=== PATIENT | male | born 1970 | race Caucasian/White ===

== ENCOUNTER 2016-09-10 18:24 | Emergency (ER) | payer OTHER ==
[2016-09-10 19:14] VITALS: BP 129/69
--- NOTE | 2016-09-10 19:40 | UC ---
Throat Pain/Nasal Homero HPI - HPI Summary HPI Summary: pain left maxillary sinus for past week, progressive. Yellow/green drainage. Left earache and popping. Teeth on upper left side seem to hurt. Constant post- nasal drip. Mild cough. No fever. Left cheek red and swollen when he woke up this AM. Smoker. - History of Current Complaint Chief Complaint: UCRespiratory Stated Complaint: sinuses, swollen L side of face Time Seen by Provider: 09/10/16 19:21 Hx Obtained From: Patient, Family/Splunk Architect - Onset/Duration: Gradual Onset, Lasting Weeks - 1 Severity: Moderate Cough: Productive - yellow Associated Signs & Symptoms: Positive: Hoarseness, Sinus Discomfort, Nasal Discharge. Negative: Dysphagia, FB Sensation, Drooling, Wheezing - Epiglottits Risk Factors Epiglottis Risk Factors: Negative - Allergies/Home Medications Allergies/Adverse Reactions: Allergies Allergy/AdvReac Type Severity Reaction Status Date / Time No Known Allergies Allergy Verified 09/10/16 19:02 PMH/Surg Hx/FS Hx/Imm Hx Previously Healthy: Yes Endocrine History Of: Denies: Diabetes Cardiovascular History Of: Denies: Hypertension, Pacemaker/ICD GI/ History Of: Denies: Renal Disease - Surgical History Surgical History: Yes Surgery Procedure, Year, and Place: left knee - ARTHROSCOPIC - CARTILAGE REPAIR - age 17. LEFT ankle fracture October 2015. LEFT ankle ligament repair Feb 2016 - Family History Known Family History: Positive: Hypertension - Social History Occupation: Employed Full-time Lives: With Family Alcohol Use: Occasionally Alcohol Amount: SOCIALLY Substance Use Type: None Smoking Status (MU): Light Every Day Tobacco Smoker Amount Used/How Often: 1 PACK EVERY 3 DAYS - Immunization History Most Recent Influenza Vaccination: Fall 2015 Review of Systems Constitutional: Negative Skin: Negative Eyes: Negative ENT: Ear Ache, Nasal Discharge Respiratory: Cough - mild, productive Cardiovascular: Negative Gastrointestinal: Negative Genitourinary: Negative Motor: Negative Neurovascular: Negative Musculoskeletal: Negative Neurological: Headache Psychological: Negative All Other Systems Reviewed And Are Negative: Yes Physical Exam Triage Information Reviewed: Yes Appearance: Well-Appearing, No Pain Distress, Well-Nourished Vital Signs: Initial Vital Signs Temp 98.4 F 09/10/16 19:03 Pulse 80 09/10/16 19:03 Resp 18 09/10/16 19:03 BP 129/69 09/10/16 19:03 Pulse Ox 99 09/10/16 19:03 Vital Signs Reviewed: Yes Eye Exam: Normal Eyes: Positive: Conjunctiva Clear ENT: Positive: Hearing grossly normal, Pharynx normal, Nasal congestion, Nasal drainage, TM dull, TM red - left side retracted, red, Muffled/hoarse voice - hoarse. Negative: Tonsillar swelling, Tonsillar exudate, Trismus Neck exam: Normal Respiratory Exam: Normal Cardiovascular Exam: Normal Musculoskeletal Exam: Normal Neurological Exam: Normal Psychological Exam: Normal Skin Exam: Normal Throat Pain/Nasal Course/Dx - Differential Dx/Diagnosis Differential Diagnosis/HQI/PQRI: Pharyngitis, Sinusitis, URI Provider Diagnoses: sinusitis Discharge - Discharge Plan Condition: Stable Disposition: HOME Prescriptions: Amoxicillin/Clavulanate TAB* [Augmentin TAB 875*] 875 mg PO BID #28 tab Patient Education Materials: Sinusitis (ED) Referrals: Edinson Chung DO [Primary Care Provider] -
== END 2016-09-10 19:43 | disposition home or self-care (01) ==
LOC: UCCORT 18:24
DX: J32.9 Chronic sinusitis, unspecified (principal); F17.210 Nicotine dependence, cigarettes, uncomplicated
CPT/HCPCS: 99212; G0463

== ENCOUNTER 2017-01-22 19:53 | Emergency (ER) | payer OTHER ==
[2017-01-22 20:07] VITALS: BP 133/77
[2017-01-22] MEDS ORDERED: Lidocaine 1% MPF* 2 ML VIAL INJ ONE (20:20)
[2017-01-22] MEDS ORDERED: Tetan/Diph/Pertus SYR(Tdap)* 0.5 ML SYR(BOOSTRIX) use SYR IM ONE (20:20)
--- NOTE | 2017-01-22 20:21 | UC ---
Laceration HPI - HPI Summary HPI Summary: 46 YEAR OLD MALE PRESENTS WITH COMPLAINS OF FOREHEAD LACERATION SECONDARY TO BLUNT TRAUMA. - History Of Current Complaint Chief Complaint: UCLaceration Stated Complaint: LACERATION TO FOREHEAD Time Seen by Provider: 01/22/17 20:16 - Allergies/Home Medications Allergies/Adverse Reactions: Allergies Allergy/AdvReac Type Severity Reaction Status Date / Time No Known Allergies Allergy Verified 01/22/17 20:07 PMH/Surg Hx/FS Hx/Imm Hx - Surgical History Surgical History: Yes Surgery Procedure, Year, and Place: left knee - ARTHROSCOPIC - CARTILAGE REPAIR - age 17. left ankle surgery - Family History Known Family History: Positive: Hypertension - Social History Alcohol Use: Occasionally Alcohol Amount: SOCIALLY Substance Use Type: None Smoking Status (MU): Light Every Day Tobacco Smoker Amount Used/How Often: 1 PACK EVERY 3 DAYS - Immunization History Most Recent Influenza Vaccination: Fall 2015 Review of Systems Constitutional: Negative Skin: Other - FOREHEAD LACERATION Eyes: Negative ENT: Negative Respiratory: Negative Cardiovascular: Negative Gastrointestinal: Negative Genitourinary: Negative Motor: Negative Neurovascular: Negative Musculoskeletal: Negative Neurological: Negative Psychological: Negative All Other Systems Reviewed And Are Negative: Yes Physical Exam Triage Information Reviewed: Yes Vital Signs: Initial Vital Signs Pulse 73 01/22/17 20:03 Resp 18 01/22/17 20:03 BP 133/77 01/22/17 20:03 Pulse Ox 97 01/22/17 20:03 Eye Exam: Normal ENT Exam: Normal Dental Exam: Normal Neck exam: Normal Neck: Positive: 1 Respiratory Exam: Normal Cardiovascular Exam: Normal Abdominal Exam: Normal Musculoskeletal Exam: Normal Neurological Exam: Normal Psychological Exam: Normal Skin Exam: Other - FOREHEAD LACERATION Laceration Repair - Laceration Repair 1 Laceration Size After Repair: Length (cm) - 3 CM Modified For Repair: No Anesthesia Used: 2.0% Lido Cleansing Completed Via Routine Prep: Yes Closure Material: Sutures - 7 SUTURES 6.0 NYLON Closure Method: Single Layer Suture Of: Skin Suture Type: Nylon - 7.0 6.0 NYLON Laceration Course/Dx - Differential Dx - Laceration/Wound Provider Diagnoses: FOREHEAD LACERATION Discharge - Discharge Plan Condition: Stable Disposition: HOME Prescriptions: Cephalexin CAP* [Keflex CAP*] 500 mg PO TID #30 cap Patient Education Materials: Laceration (ED) Referrals: Edinson Chung DO [Primary Care Provider] -
[2017-01-22] MEDS ORDERED: Cephalexin CAP* 500 MG PO ONE (21:11)
== END 2017-01-22 21:20 | disposition home or self-care (01) ==
LOC: UCCORT 19:53
DX: S01.81XA Laceration without foreign body of other part of head, initial encounter (principal); X58.XXXA Exposure to other specified factors, initial encounter; Z23 Encounter for immunization
CPT/HCPCS: 12013; 90471; 90715; 99212; A9270-GY; G0463

== ENCOUNTER 2017-07-11 14:01 | Emergency (ER) | payer OTHER ==
[2017-07-11 14:26] VITALS: BP 143/81
[2017-07-11] MEDS ORDERED: Aspirin Low Dose CHEW TAB* 81 MG PO ONE (14:29)
--- NOTE | 2017-07-11 14:33 | ED ---
HPI Chest Pain - HPI Summary HPI Summary: 46 yr old male with pain in upper left chest intermittent for three days, radiates into his left shoulder and upper arm. Has had intermittent tingling in his left fingers. Denies SOB. Denies dizziness. No other complaints. - History of Current Complaint Chief Complaint: UCUpperExtremity Time Seen by Provider: 07/11/17 14:20 - Allergy/Home Medications Allergies/Adverse Reactions: Allergies Allergy/AdvReac Type Severity Reaction Status Date / Time No Known Allergies Allergy Verified 01/22/17 20:07 Home Medications: Home Medications Naproxen TAB* [Naprosyn 250 mg TAB*] 500 mg PO ONCE 07/11/17 [History Confirmed 07/11/17] PMH/Surg Hx/FS Hx/Imm Hx Endocrine/Hematology History: Denies: Hx Diabetes Cardiovascular History: Denies: Hx Hypertension, Hx Pacemaker/ICD History: Denies: Hx Renal Disease Musculoskeletal History: Reports: Other Musculoskeletal History - BAD LIGAMENT IN LEFT ANKLE Sensory History: Reports: Hx Contacts or Glasses - READING Denies: Hx Hearing Aid Opthamlomology History: Reports: Hx Contacts or Glasses - READING Psychiatric History: Denies: Hx Panic Disorder - Surgical History Surgery Procedure, Year, and Place: left knee - ARTHROSCOPIC - CARTILAGE REPAIR - age 17. left ankle surgery Hx Anesthesia Reactions: No Infectious Disease History: No Infectious Disease History: Denies: Traveled Outside the [place] in Last 30 Days - Family History Known Family History: Positive: Hypertension - Social History Occupation: Employed Full-time Lives: With Family Alcohol Use: Occasionally Alcohol Amount: SOCIALLY Substance Use Type: Reports: None Smoking Status (MU): Light Every Day Tobacco Smoker Amount Used/How Often: 1 PACK EVERY 3 DAYS Review of Systems Positive: Chest Pain All Other Systems Reviewed And Are Negative: Yes Physical Exam Triage Information Reviewed: Yes Vital Signs On Initial Exam: Initial Vitals Temp Pulse Resp BP Pulse Ox 98.3 F 82 16 143/81 97 07/11/17 14:08 07/11/17 14:08 07/11/17 14:08 07/11/17 14:08 07/11/17 14:08 Vital Signs Reviewed: Yes Appearance: Positive: Well-Appearing, No Pain Distress Skin: Positive: Warm, Skin Color Reflects Adequate Perfusion Head/Face: Positive: Normal Head/Face Inspection ENT: Positive: Normal ENT inspection Respiratory/Lung Sounds: Positive: Clear to Auscultation, Breath Sounds Present Cardiovascular: Positive: RRR. Negative: Murmur Abdomen Description: Positive: Nontender Musculoskeletal: Positive: Strength/ROM Intact Neurological: Positive: Sensory/Motor Intact, Alert, Oriented to Person Place, Time, CN Intact II-III Psychiatric: Positive: Normal - Jackelin Coma Scale Best Eye Response: 4 - Spontaneous Best Motor Response: 6 - Obeys Commands Best Verbal Response: 5 - Oriented Diagnostics - Vital Signs Vital Signs Temp Pulse Resp BP Pulse Ox 07/11/17 14:08 98.3 F 82 16 143/81 97 - Laboratory Lab Statement: Any lab studies that have been ordered have been reviewed, and results considered in the medical decision making process. - EKG 07/11/17 Cardiac Rate: NL EKG Rhythm: Sinus Rhythm ST Segment: Normal Chest Pain Course/Dx - Course Course Of Treatment: 46 yr old with chest, shoulder and upper arm pain and some tingling in fingers. He will go to [facility] [place] [facility]. Dr Martinez aware. Patient going by ALS. - Diagnoses Provider Diagnoses: Chest pain, Hypertension Discharge - Discharge Plan Condition: Good Disposition: TRANS HIGHER LVL OF CARE FAC Referrals: Edinson Chung DO [Primary Care Provider] -
== END 2017-07-11 14:52 | disposition short-term general hospital (02) ==
LOC: UCCORT 14:01
DX: R07.9 Chest pain, unspecified (principal); I10 Essential (primary) hypertension; Z72.0 Tobacco use; Z72.89 Other problems related to lifestyle
CPT/HCPCS: 93005; 99213; A9270-GY; G0463

== ENCOUNTER 2017-07-11 15:26 | Emergency (ER) | payer OTHER ==
[2017-07-11 15:56] LABS: Hematocrit 46 % (42-52); Hemoglobin 16.1 g/dl (14.0-18.0); Mean Corpuscular HGB Conc 35 g/dl (31-36); Mean Corpuscular Hemoglobin 30 pg (27-31); Mean Corpuscular Volume 86 fL (80-94); Mean Platelet Volume 8 um3 (7.4-10.4); Red Blood Count 5.33 10^6/ul (4.0-5.4); Red Cell Distribution Width 13 % (10.5-15); White Blood Count 9.8 10^3/ul (3.5-10.8)
[2017-07-11 16:09] LABS: Albumin 4.1 g/dL (3.2-5.2); BUN/Creatinine Ratio 18.6 (8-20); Calcium 9.1 mg/dL (8.6-10.3); EGFR African American 123.7 (>60); EGFR Non-African American 96.2 (>60); Potassium 3.8 mmol/L (3.5-5.0); Total Bilirubin 0.4 mg/dL (0.2-1.0); Total Protein 7.1 g/dL (6.4-8.9); Troponin I 0.01 ng/mL (<0.04)
[2017-07-11] MEDS ORDERED: NS 0.9% 1000 ML* 1,000 ML IV ONE (16:18)
[2017-07-11] MEDS ORDERED: Iohexol 350* (CONTRAST) 500 ML MDV IV ONE (16:26)
--- NOTE | 2017-07-11 17:05 | RAD ---
Indication: Left neck pain radiating to the left shoulder. Contrast: Administered 82.1 ml of OMNIPAQUE 350 mg/ml CTA of the chest was performed after IV contrast administration. The pulmonary arterial tree is well opacified. There are no filling defects present to suggest pulmonary embolus. 3 to 5 mm pretracheal lymph nodes are noted. Small 3 to 5 mm AP window lymph nodes are noted. The heart demonstrates no pericardial effusion. The trachea and major bronchi appear patent. The lung ca demonstrate no evidence of alveolar consolidation. No pleural fluid is identified. The liver and spleen adrenal glands and pancreas demonstrates no mass or pancreatic duct dilatation. Multilevel degenerative disc disease is noted. IMPRESSION: Pulmonary arterial tree is well opacified. No pulmonary emboli are identified.
--- NOTE | 2017-07-11 17:13 | RAD ---
Indication: Left neck pain. CT of the cervical spine was obtained in the axial plane. Sagittal and coronal reconstructed images were obtained. Mastoid air cells are well aerated. The C1 ring is intact. There is no evidence of fracture. At C2-C3 there is no evidence of fracture. No central or foraminal stenosis is noted. At C3-C4 there is spondylitic ridge with right uncovertebral joint hypertrophy narrowing the right foramen. The left foramen appear patent. At C4-C5, C5-C6 and C6-C7 no fracture or disc extrusion is identified. IMPRESSION: Degenerative disc disease. At C3-C4 right uncovertebral joint hypertrophy narrows the right foramen.
--- NOTE | 2017-07-11 17:20 | RAD ---
Indication: Back pain. CT of the thoracic spine was obtained in the axial plane. Sagittal and coronal reconstructed images were obtained. The vertebral bodies appear normal in height. There is disc space narrowing at T5-T6, T6-T7, T7-T8, T8-T9, T9-T10, T10-T11 with osteophyte formation especially in the right anterior aspect of the disc space. No fracture is identified. Intervertebral foramen appear patent. IMPRESSION: Multilevel degenerative disc disease from T5-T6 through T10-T11 with osteophyte formation in the right anterior disc space.
--- NOTE | 2017-07-11 17:29 | RAD ---
Indication: EKG changes. Single frontal view of the chest performed at 1554 hours was reviewed. No prior study is available for comparison. No mediastinal shift is noted. Heart is of normal size and configuration. Lung ca appear clear. IMPRESSION: NO ACTIVE CARDIOPULMONARY DISEASE IS NOTED.
[2017-07-11 19:17] VITALS: BP 154/74
--- NOTE | 2017-07-11 20:01 | ED ---
Hakeem Charles Natalie, scribed for Guilherme Sauceda MD on 07/11/17 at 1615 . HPI Chest Pain - HPI Summary HPI Summary: The pt is a 46 y/o M presenting to the ED c/o CP sudden onset 07/08/17. The pain is in LUQ and radiates to left scapula, left shoulder, upper left lateral. The pain is described as "shooting and pulling" pain. The pain is rated 5/10. The pt starting feeling tingling in fingers yesterday and went to [facility], where EKG showed change in T-wave. The pain is aggravated by sitting upright and standing. The pain is alleviated by rest. 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 Pt additionally c/o neck pain. Pt denies CP, SOB, nausea, diaphoresis, and abd pain. Pt doesnt have hx of neck injuries or blood clots, but he does have hx of tendonitis in in both elbows. Pt has family hx of cardiac disease. - History of Current Complaint Chief Complaint: EDChestPainROMI Time Seen by Provider: 07/11/17 15:56 Hx Obtained From: Patient Onset/Duration: Started Days Ago - started 07/08/17, Still Present Timing: Constant, Lasting Days Initial Severity: Moderate Current Severity: Moderate Pain Intensity: 5 Pain Scale Used: 0-10 Numeric Chest Pain Location: Left Anterior, Left Lateral Chest Pain Radiates: Yes Chest Pain Radiates To:: Other - left scapula, left upper lateral, left shoulder Character: Other: - "shooting and pulling" pain Aggravating Factor(s): Other: - upright position and standing Alleviating Factor(s): Rest Associated Signs and Symptoms: Positive: Tingling - in left fingers, Other: - POSITIVE: pain in neck, left shoulder, left scapula, upper left lateral region. Negative: Chest Pain, Shortness of Breath, Diaphoresis, Nausea, Abdominal Pain - Allergy/Home Medications Allergies/Adverse Reactions: Allergies Allergy/AdvReac Type Severity Reaction Status Date / Time No Known Allergies Allergy Verified 07/11/17 14:33 PMH/Surg Hx/FS Hx/Imm Hx Previously Healthy: No Endocrine/Hematology History: Denies: Hx Diabetes Cardiovascular History: Denies: Hx Hypertension, Hx Pacemaker/ICD History: Denies: Hx Renal Disease Musculoskeletal History: Reports: Hx Tendonitis - left and right upper extremities , Other Musculoskeletal History - BAD LIGAMENT IN LEFT ANKLE Sensory History: Reports: Hx Contacts or Glasses - READING Opthamlomology History: Reports: Hx Contacts or Glasses - READING Psychiatric History: Denies: Hx Panic Disorder - Surgical History Surgery Procedure, Year, and Place: left knee - ARTHROSCOPIC - CARTILAGE REPAIR - age 17. left ankle surgery Hx Anesthesia Reactions: No Infectious Disease History: No Infectious Disease History: Denies: Traveled Outside the [place] in Last 30 Days - Family History Known Family History: Positive: Cardiac Disease, Hypertension - Social History Alcohol Use: Occasionally Alcohol Amount: SOCIALLY Substance Use Type: Reports: None Smoking Status (MU): Light Every Day Tobacco Smoker Amount Used/How Often: 1 PACK EVERY 3 DAYS Review of Systems Negative: Skin Diaphoresis Negative: Chest Pain Negative: Shortness Of Breath Negative: Abdominal Pain, Nausea Positive: Other - POSITIVE: pain in left scapula, left shoulder, left lateral region, tingling in fingers on left hand All Other Systems Reviewed And Are Negative: Yes Physical Exam Triage Information Reviewed: Yes Vital Signs On Initial Exam: Initial Vitals Temp Pulse Resp BP Pulse Ox 99.1 F 70 16 128/73 96 07/11/17 15:50 07/11/17 15:50 07/11/17 15:50 07/11/17 15:50 07/11/17 15:50 Vital Signs Reviewed: Yes Appearance: Positive: Well-Appearing, No Pain Distress Skin: Positive: Warm, Skin Color Reflects Adequate Perfusion Head/Face: Positive: Normal Head/Face Inspection Eyes: Positive: EOMI, RAMIREZ ENT: Positive: Normal ENT inspection Neck: Positive: Tenderness @ - palpitation from C5 to T3 on left side Respiratory/Lung Sounds: Positive: Clear to Auscultation, Breath Sounds Present Cardiovascular: Positive: RRR Abdomen Description: Positive: Nontender, Soft Bowel Sounds: Positive: Present Musculoskeletal: Positive: Strength/ROM Intact, Other - tenderness to left paraspinal muscles, left scapula, left shoulder; upper extremity exam: good pulse, no sensation deficit, good strength and ROM in elbows and shoulder motion Neurological: Positive: Normal, Sensory/Motor Intact, Alert, Oriented to Person Place, Time Psychiatric: Positive: Affect/Mood Appropriate Diagnostics - Vital Signs Vital Signs Temp Pulse Resp BP Pulse Ox 07/11/17 15:50 99.1 F 70 16 128/73 96 - Laboratory Lab Results: Lab Results 07/11/17 07/11/17 Range/Units 15:35 15:35 WBC 9.8 (3.5-10.8) 10^3/ul RBC 5.33 (4.0-5.4) 10^6/ul Hgb 16.1 (14.0-18.0) g/dl Hct 46 (42-52) % MCV 86 (80-94) fL MCH 30 (27-31) pg MCHC 35 (31-36) g/dl RDW 13 (10.5-15) % Plt Count 230 (150-450) 10^3/ul MPV 8 (7.4-10.4) um3 Neut % (Auto) 54.4 (38-83) % Lymph % (Auto) 33.1 (25-47) % [place] % (Auto) 9.1 H (1-9) % Eos % (Auto) 2.8 (0-6) % Baso % (Auto) 0.6 (0-2) % Absolute Neuts (auto) 5.4 (1.5-7.7) 10^3/ul Absolute Lymphs (auto) 3.3 (1.0-4.8) 10^3/ul Absolute Monos (auto) 0.9 H (0-0.8) 10^3/ul Absolute Eos (auto) 0.3 (0-0.6) 10^3/ul Absolute Basos (auto) 0.1 (0-0.2) 10^3/ul Absolute Nucleated RBC 0.01 10^3/ul Nucleated RBC % 0.1 Lactic Acid 1.1 (0.5-2.0) mmol/L Result Diagrams: 07/11/17 15:35 07/11/17 15:35 Lab Statement: Any lab studies that have been ordered have been reviewed, and results considered in the medical decision making process. - Radiology Chest/Thorax CTA Xray Interpretation: No Acute Changes Radiology Interpretation Completed By: Radiologist CXR Xray Interpretation: No Acute Changes - No active cardiopulmonary disease is noted. ED physician has reviewed this report. Radiology Interpretation Completed By: Radiologist - CT Cervical Spine CT CT Interpretation: Positive (See Comments) - Degenerative disc disease. At C3- C4 right uncovertebral joint hypertrophy narrows the right foramen. ED physician has reviewed this report. CT Interpretation Completed By: Radiologist Thoracic Spine CT CT Interpretation: Positive (See Comments) - Multilevel degeneratice disc disease from T5-T6 through T10-T11 with osteophyte formation in the right anterior disc space. ED physician has reviewed this report. CT Interpretation Completed By: Radiologist - EKG 15:32 Cardiac Rate: NL EKG Rhythm: Sinus Rhythm - 79 BPM EKG Interpretation: No ectopy. Flat T waves in 3 and AVF. No change from prior EKG from today. Chest Pain Course/Dx - Course Course Of Treatment: BP is normal. Medications reviewed. DISCUSSED RESULTS WITH LANDON. F/U PMD; RETURN IF WORSE. - Diagnoses Provider Diagnoses: Cervical radiculopathy, Chest pain Discharge - Discharge Plan Condition: Stable Disposition: HOME Patient Education Materials: Chest Pain (ED), Cervical Radiculopathy (ED) Forms: *Work Release Referrals: Edinson Chung DO [Primary Care Provider] - Additional Instructions: FOLLOW UP WITH YOUR DOCTOR. RETURN TO THE EMERGENCY DEPARTMENT FOR ANY WORSENING OF YOUR CONDITION; PAIN, WEAKNESS, NUMBNESS, SHORTNESS OF BREATH, YOU FEEL ILL OR QUESTIONS OR CONCERNS. The documentation as recorded by the Hakeem knapp Natalie accurately reflects the service I personally performed and the decisions made by me, Guilherme Sauceda MD.
== END 2017-07-11 19:15 | disposition home or self-care (01) ==
LOC: ED 15:26
DX: R07.9 Chest pain, unspecified (principal); M50.13 Cervical disc disorder with radiculopathy, cervicothoracic region; M51.34 Other intervertebral disc degeneration, thoracic region; M25.78 Osteophyte, vertebrae; F17.200 Nicotine dependence, unspecified, uncomplicated
CPT/HCPCS: 36415; 71010; 71275; 72125; 72128; 80053; 83605; 84484; 85025; 93005; 96360; 99283; Q9967

== ENCOUNTER 2018-01-04 08:35 | Emergency (ER) | payer OTHER ==
[2018-01-04 08:50] VITALS: BP 126/79
--- NOTE | 2018-01-04 09:12 | UC ---
Eye Complaint HPI - HPI Summary HPI Summary: 47 yo male presents with left eye redness and drainage that he noticed this morning when he woke up. Does not wear contacts. Denies fever, chills, vision changes, recent illness. - History of Current Complaint Chief Complaint: UCEye Stated Complaint: LEFT EYE COMPLAINT Time Seen by Provider: 01/04/18 09:06 Hx Obtained From: Patient Onset/Duration: Sudden Onset Timing: Constant Severity Currently: None Pain Intensity: 0 - Allergies/Home Medications Allergies/Adverse Reactions: Allergies Allergy/AdvReac Type Severity Reaction Status Date / Time No Known Allergies Allergy Verified 01/04/18 08:47 PMH/Surg Hx/FS Hx/Imm Hx - Additional Past Medical History Additional PMH: None Previously Healthy: Yes - Surgical History Surgical History: Yes Surgery Procedure, Year, and Place: left knee - ARTHROSCOPIC - CARTILAGE REPAIR - age 17. left ankle surgery 2016 - Family History Known Family History: Positive: Cardiac Disease, Hypertension - Social History Occupation: Employed Full-time Lives: With Family Alcohol Use: Occasionally Alcohol Amount: SOCIALLY Substance Use Type: None Smoking Status (MU): Light Every Day Tobacco Smoker Amount Used/How Often: 1/2 ppd - Immunization History Most Recent Influenza Vaccination: Fall 2015 Review of Systems Constitutional: Negative Skin: Negative Eyes: Drainage, Eye Redness ENT: Negative Respiratory: Negative Cardiovascular: Negative Neurovascular: Negative Neurological: Negative Psychological: Negative All Other Systems Reviewed And Are Negative: Yes Physical Exam - Summary Physical Exam Summary: GENERAL: NAD. WDWN. No pain distress. SKIN: No rashes, sores, lesions, or open wounds. HEENT: Head: AT/NC Eyes: EOM intact. PERRLA. LEFT EYE: Conjunctiva with mild erythema and inflammation. Mild clear/yellow discharge. Sclera mildly injected. Right eye : WNL. Ears: Hearing grossly normal. TMs intact, no bulging, erythema, or edema. Nose: Nasal mucosa pink and moist. NTTP maxillary and frontal sinus. Throat: Posterior oropharynx without exudates, erythema, or tonsillar enlargement. Uvula midline. NECK: Supple. Nontender. No lymphadenopathy. CHEST: CTAB. No r/r/w. No accessory muscle use. Breathing comfortably and in no distress. CV: RRR. Without m/r/g. Pulses intact. Brisk cap refill. NEURO: Alert. CN II-XII grossly intact. PSYCH: Age appropriate behavior. Triage Information Reviewed: Yes Vital Signs: Initial Vital Signs Temp 98.3 F 01/04/18 08:46 Pulse 73 01/04/18 08:46 Resp 18 01/04/18 08:46 BP 126/79 01/04/18 08:46 Pulse Ox 98 01/04/18 08:46 Eye Complaint Course/Dx - Course Course Of Treatment: LEft eye conjunctivitis - Differential Dx/Diagnosis Provider Diagnoses: LEft eye conjunctivitis Discharge - Sign-Out/Discharge Documenting (check all that apply): Discharge/Admit/Transfer - Discharge Plan Condition: Stable Disposition: HOME Prescriptions: Polymyx/Trimethoprim OPTH* [Polytrim OPHTH*] 1 drop LEFT EYE QID #1 btl Patient Education Materials: Conjunctivitis (ED) Forms: *Work Release Referrals: Edinson Chung DO [Primary Care Provider] - Additional Instructions: If you develop a fever, shortness of breath, chest pain, new or worsening symptoms - please call your PCP or go to the ED. - Billing Disposition and Condition Condition: STABLE Disposition: Home
== END 2018-01-04 09:17 | disposition home or self-care (01) ==
LOC: UCCORT 08:35
DX: H10.9 Unspecified conjunctivitis (principal); F17.210 Nicotine dependence, cigarettes, uncomplicated
CPT/HCPCS: 99212; G0463